=== PATIENT | female | born 1980 | race African-American/Black ===

== ENCOUNTER 2019-03-04 23:10 | Emergency (ER) | payer OTHER ==
[2019-03-04 23:17] VITALS: BP 158/96; PULSE 90; TEMP 98.3; BMI 32.9
--- NOTE | 2019-03-04 23:27 | PDOC ---
History of Present Illness - General Chief Complaint: Pain, Acute Stated Complaint: ABD PAIN Time Seen by Provider: 03/04/19 23:27 History Source: Patient Exam Limitations: No Limitations - History of Present Illness Initial Comments: 03/04/19 23:31 This is a 38-year-old female who comes in complaining of abdominal pain in the periumbilical area. Patient states she has had intermittent abdominal pain for approximately 1 year since she had her child a year ago. Patient said the pain comes and goes and she is never followed up with anybody or seen her primary care doctor about it. She saw a bulging in the area of her umbilicus and had severe pain. By the time she got here the bulging had resolved and the pain was nearly resolved as well. Patient denied any fevers, chills, nausea, vomiting or diarrhea. Allergies: as per nursing notes Past Medical History: none Social history: Lives with family. No smoking. No alcohol. No illicit drugs. Surgical history: None General: No fevers or chills, no weakness, no weight loss HEENT: No change in vision. No sore throat,. No ear pain CardioVascular: no chest discomfort. No shortness of breath Respiratory:No cough, or wheezing. Gastrointestinal: no nausea, vomiting, diarrhea or constipation, No rectal bleeding,, abdominal pain as per HPI Genitourinary: No dysuria, hematuria, or frequency Musculoskeletal: No joint or muscle pain or swelling Neurologic: No headache, vertigo, dizziness or loss of consciousness Psychiatric: nor depression Skin: No rashes or easy bruising Endocrine: no increased thirst or abnormal weight change Allergic: no skin or latex allergy All other systems reviewed and normal Exam: General: Well-nourished well-developed individual, no acute distress HEENT: Throat: Normal, tonsils normal, no erythema or exudate Neck: Supple, no meningeal signs, no lymphadenopathy Eyes::Pupils equal reactive and round, extraocular motion intact Chest: Nontender to palpation Cardiac: S1-S2 normal, regular rate and rhythm, no murmurs rubs or gallops Respiratory: Lungs clear to auscultation bilateral Abdomen: Soft, nondistended, normal bowel sounds, there is mild tenderness on palpation diffusely, there is some mild to moderate tenderness over the umbilical area however there is no palpable hernia. Extremities: Warm, dry, no cyanosis, clubbing, or edema Skin: No rashes Neuro: Alert and oriented x3, CN II - XII intact, nonfocal exam with normal strength, normal sensation, normal reflexes, normal gait, Psych: Normal mood and affect 03/04/19 23:38 03/05/19 01:34 This is a 38-year-old female who comes in complaining of abdominal pain. Patient abdominal pain has resolved here in the ED. Patient had a work-up including a CAT scan that did show a small periumbilical hernia but no fat or bowel in it. In addition patient's blood work is all unremarkable. Patient also had an EKG that did show some nonspecific ST-T wave changes but otherwise was normal. Patient discharged and told to follow-up with her primary care doctor regarding the umbilical hernia 03/05/19 01:35 Past History - Past Medical History Allergies/Adverse Reactions: Allergies Allergy/AdvReac Type Severity Reaction Status Date / Time No Known Allergies Allergy Unverified 03/04/19 23:11 Home Medications: Ambulatory Orders Labetalol HCl 300 mg PO TID 03/04/19 Cardiac Disorders: Yes ('FLUID AROUND HEART') COPD: No Diabetes: Yes HTN: Yes - Surgical History Cardiac Surgery: No (FLUID AROUND HEART DRAINED) Gastric Stapling: No (GASTRIC SLEEVE) - Psycho Social/Smoking Cessation Hx Smoking History: Never smoked *Physical Exam - Vital Signs Last Vital Signs Temp Pulse Resp BP Pulse Ox 98.3 F 90 18 158/96 100 03/04/19 23:12 03/04/19 23:12 03/04/19 23:12 03/04/19 23:12 03/04/19 23:12 ED Treatment Course - LABORATORY CBC & Chemistry Diagram: 03/04/19 23:40 03/04/19 23:40 Discharge - Discharge Information Problems reviewed: Yes Clinical Impression/Diagnosis: Abdominal pain Qualifiers: Abdominal location: periumbilical Qualified Code(s): R10.33 - Periumbilical pain Condition: Stable Disposition: HOME - Admission No - Follow up/Referral - Patient Discharge Instructions Additional Instructions: Follow-up with your primary care doctor. Return to the emergency department immediately with ANY new, persistent or worsening symptoms. Continue any medications as previously prescribed by your physician. You should follow up with your primary doctor as soon as possible regarding today's emergency department visit. . Please make sure your doctor reviews the results of your emergency evaluation. Thank you for coming to the Emergency Department today for your care. It was a pleasure to see you today. Please note that your evaluation is INCOMPLETE until you follow-up with your doctor. - Post Discharge Activity
[2019-03-04] MEDS ORDERED: KETOROLAC TROMETHAMINE 30 MG/1 ML VIAL ONE (23:37)
[2019-03-04] MEDS ORDERED: KETOROLAC TROMETHAMINE 30 MG/1 ML VIAL IVPUSH ONE (23:37)
[2019-03-05 00:43] LABS: BASO % 0.6 % (0-2.0); EOS % 1.2 % (0-4.5); HEMATOCRIT 32.9 % (32.4-45.2); HEMOGLOBIN 10.2 GM/dL (10.7-15.3); LYMPH % 28.7 % (8-40); MCH 20.2 pg (25.7-33.7); MEAN CELL VOLUME 65.2 fl (80-96); MEAN PLT VOLUME 10.8 fl (7.5-11.1); MONO % 6.9 % (3.8-10.2); NEUT % 62.6 % (42.8-82.8); PLATELET COUNT 291 K/MM3 (134-434); RBC 5.05 M/mm3 (3.60-5.2); RDW 18.5 % (11.6-15.6); WHITE BLOOD COUNT 7.6 K/mm3 (4.0-10.0)
[2019-03-05 00:47] LABS: PH,URINE 8.5 (5.0-8.0); URINE APPEARANCE Clear; URINE BILIRUBIN Negative (NEGATIVE); URINE COLOR Yellow; URINE GLUCOSE (UA) Negative (NEGATIVE); URINE KETONE Trace (NEGATIVE); URINE LEUK ESTERASE Trace (NEGATIVE); URINE NITRITE Negative (NEGATIVE); URINE PROTEIN 1+ (NEGATIVE); URINE UROBILINOGEN 0.2 mg/dL (0.2-1.0)
[2019-03-05] MEDS ORDERED: SODIUM CHLORIDE 1,000 ML IV SCH (01:00)
[2019-03-05 01:20] LABS: ALBUMIN 3.7 g/dl (3.4-5.0); BILIRUBIN,TOTAL 0.2 mg/dL (0.2-1); BLOOD UREA NITROGEN 12.4 mg/dL (7-18); CALCIUM 9.5 mg/dL (8.5-10.1); CREATININE 0.8 mg/dL (0.55-1.3)
[2019-03-05 04:34] LABS: ANISOCYTOSIS 2+; MACROCYTOSIS 0; SICKELED CELLS 0
--- NOTE | 2019-03-05 12:17 | EKG ---
Test Reason : Blood Pressure : / mmHG Vent. Rate : 087 BPM Atrial Rate : 087 BPM P-R Int : 198 ms QRS Dur : 080 ms QT Int : 394 ms P-R-T Axes : 055 077 069 degrees QTc Int : 474 ms NORMAL SINUS RHYTHM NONSPECIFIC ST AND T WAVE ABNORMALITY ABNORMAL ECG NO PREVIOUS ECGS AVAILABLE Confirmed by AMNA WATKINS MD ([id number]) on 03/05/2019 12:17:03 PM Referred By: MD ISBELL Confirmed By:AMNA WATKINS MD
== END 2019-03-05 01:40 | disposition home or self-care (01) ==
LOC: FER 23:10
PROC: 3E0333Z Introduction of Anti-inflammatory into Peripheral Vein, Percutaneous Approach (ICD-10-PCS; principal; 2019-03-04)
DX: R10.33 Periumbilical pain (principal); I10 Essential (primary) hypertension; E11.9 Type 2 diabetes mellitus without complications; I51.9 Heart disease, unspecified
CPT/HCPCS: 36415; 74177-TC; 80053; 81003; 82550; 82553; 84484; 85025; 93005; 99283-25; J7030; Q9967

== ENCOUNTER 2019-09-15 21:05 | Emergency (ER) | payer OTHER ==
[2019-09-15 21:20] VITALS: TEMP 98; BMI 32.9
[2019-09-15] MEDS ORDERED: SODIUM CHLORIDE 1,000 ML IV STA (21:26)
[2019-09-15] MEDS ORDERED: morphine CARPU-JECT 4 MG/1 ML DISP.SYRIN IVPUSH ONE (21:26)
[2019-09-15] MEDS ORDERED: morphine SULFATE 4 MG/ML VIAL ONE (21:49)
[2019-09-15 22:19] LABS: BASO % 0.6 % (0-2.0); EOS % 0.9 % (0-4.5); HEMOGLOBIN 9.8 GM/dL (10.7-15.3); LYMPH % 18.9 % (8-40); MCHC 30.7 g/dl (32.0-36.0); MEAN CELL VOLUME 64.2 fl (80-96); MEAN PLT VOLUME 11.3 fl (7.5-11.1); NEUT % 71.6 % (42.8-82.8); PLATELET COUNT 271 K/MM3 (134-434); RBC 4.99 M/mm3 (3.60-5.2); WHITE BLOOD COUNT 7.1 K/mm3 (4.0-10.0)
--- NOTE | 2019-09-15 22:22 | PDOC ---
History of Present Illness - General Chief Complaint: Pain Stated Complaint: HERNIA Time Seen by Provider: 09/15/19 21:25 - History of Present Illness Initial Comments: 09/15/19 22:16 39 yo female with pmh umbilical hernia, pericardial effusion, htn, NIDDM, Gastric bypass presents to ED for pain where hernia is that started 3 days ago. Pt explains for the last three days pain has been getting worse and then today pt had 2 episodes of nbnb emesis and nonbloody not black diarrhea. Pt explains pain is around her umbilicus where hernia and has 10/10 in pain. Pt was diagnosed with umbilical hernia in 2014 and had worsening symptoms five months ago where she was supposed to follow up with surgery, but she did not. Pt today denies any dysuria, urinary frequency, fevers, chills, or shortness of breath. Pt does have chest pain but that is chronic. pmh: pericardial effusion, HTN, DM Meds: metformin, labetalol PSH Gastric sleeve, pericardiocentesis Allergies: NKDA Social: denies smoking, drugs and alchol PCP: Dr. Govea Surgeon: Dr. Dotson ([facility]) Past History - Medical History Allergies/Adverse Reactions: Allergies Allergy/AdvReac Type Severity Reaction Status Date / Time No Known Allergies Allergy Unverified 09/15/19 21:15 Home Medications: Ambulatory Orders Labetalol HCl 300 mg PO TID 03/04/19 Labetalol HCl 300 mg PO TID #20 tablet 09/16/19 Cardiac Disorders: Yes ('FLUID AROUND HEART') COPD: No Diabetes: Yes GI Disorders: Yes (hernia) HTN: Yes - Surgical History Cardiac Surgery: No (FLUID AROUND HEART DRAINED) Gastric Stapling: No (GASTRIC SLEEVE) - Reproductive History Is Patient Now?: No - Psycho-Social/Smoking History Smoking History: Never smoked - Substance Abuse Hx (Audit-C & DAST Scrn) How often the patient has a drink containing alcohol: Never Score: In Men: 4 or > Positive; In Women: 3 or > Positive: 0 Screen Result (Pos requires Nsg. Audit-10AR): Negative Review of Systems - Review of Systems Comments:: 09/15/19 23:54 GENERAL/CONSTITUTIONAL: No fever or chills. No weakness. HEAD, EYES, EARS, NOSE AND THROAT: No change in vision. . No sore throat. CARDIOVASCULAR: No SOB. Chest pain chronic RESPIRATORY: No cough, wheezing, or hemoptysis. GASTROINTESTINAL: Nausea, vomitting, and diarrhea. GENITOURINARY: No dysuria, frequency, or change in urination. MUSCULOSKELETAL: No joint or muscle swelling or pain. No neck or back pain. SKIN: No rash NEUROLOGIC: No headache, vertigo, loss of consciousness, or change in strength/sensation. ENDOCRINE: No increased thirst. No abnormal weight change ALLERGIC/IMMUNOLOGIC: No hives or skin allergy. *Physical Exam - Vital Signs Last Vital Signs Temp Pulse Resp BP Pulse Ox 98 F 77 18 171/111 H 100 09/15/19 21:11 09/15/19 21:11 09/15/19 21:11 09/15/19 21:11 09/15/19 21:11 - Physical Exam 09/15/19 23:56 GENERAL: Awake, alert, and fully oriented, in distress HEAD: No signs of trauma, normocephalic, atraumatic EYES: EOMI, sclera anicteric, conjunctiva clear ENT: Auricles normal inspection, hearing grossly normal, nares patent, NECK: Normal ROM, supple, no lymphadenopathy, JVD, or masses LUNGS: speaks full sentences, clear to auscultation bilaterally HEART: Regular rate and rhythm, normal S1 and S2, no murmurs, rubs or gallops, peripheral pulses normal and equal bilaterally. ABDOMEN: Normoactive bowel sounds in all four quadrants. 2 cm hernia on right periumbillical area. Pt tender to palpation in all four quadrants. No discoloration of hernia EXTREMITIES : Normal inspection,no edema. No clubbing or cyanosis. NEUROLOGICAL: Cranial nerves II through XII grossly intact. Normal speech, normal gait, no focal sensorimotor deficits SKIN: Warm, Dry, normal turgor, no rashes or lesions noted 09/16/19 02:56 ED Treatment Course - LABORATORY CBC & Chemistry Diagram: 09/15/19 21:50 09/15/19 21:50 - Medications Given in the ED: ED Medications Discontinued Medications Generic Name Dose Route Start Last Admin Trade Name Freq PRN Reason Stop Dose Admin Morphine Sulfate 4 mg 09/15/19 21:26 09/15/19 21:53 Morphine Injection - IVPUSH 09/15/19 21:27 4 mg ONCE ONE Administration Medical Decision Making - Medical Decision Making 09/15/19 22:22 39 yo female with pmh of umbilical hernia, htn,dm, pericardial effusion, gastric sleeve presents today for umbilical hernia pain, vomitting, and diarrhea. Pt will rule out incarcerated hernia or obstruction. Will get CT scan of abdomen, cbc, cmp, lactic, coags, type and screen. Will review labs and decide on dispo 09/16/19 03:44 Pt feels better, able to tolerate PO, hernia was mildly reduced, CT scan showed no obstruction. Will dc home with pain meds and surgery follow up. Discharge - Discharge Information Problems reviewed: Yes Clinical Impression/Diagnosis: Umbilical hernia without obstruction or gangrene Condition: Stable Disposition: HOME - Additional Discharge Information Prescriptions: Labetalol HCl 300 mg PO TID #20 tablet - Follow up/Referral Referrals: Domenic Lowry MD [Staff Physician] - - Patient Discharge Instructions Patient Printed Discharge Instructions: Abdominal Hernia Additional Instructions: You came to ED for abdominal pain. This is most likely due to your umbilical hernia. At the ED we got labs and imaging. These showed no acute abnormalities. We gave you pain medications, which controlled your pain. For your umbilical hernia please follow up with surgery within one week. For recurring pain please take tylenol or ibuprofen. - Tylenol 325mg-1000mg 4 times a day no more than [id number] in one day - ibuprofen 400mg every 4-6hrs Max 2400 in one day Your workup is not complete without following up with surgery either your own or the one we referred you to. If you have any of the following please return: - unable to eat anything by mouth - worsening abdominal pain - unable to pass bowel movements If you have any emergency please call for medical help right away. - Post Discharge Activity
[2019-09-15 22:25] LABS: MCH 19.7 pg (25.7-33.7)
[2019-09-15 22:26] LABS: INR 1.02 (0.83-1.09)
[2019-09-15 22:29] LABS: ACTIVATED PTT 30.3 SECONDS (25.2-36.5)
[2019-09-15 22:47] LABS: ALBUMIN 3.8 g/dl (3.4-5.0); BILIRUBIN,TOTAL 0.2 mg/dL (0.2-1); BLOOD UREA NITROGEN 10.2 mg/dL (7-18); CALCIUM 9.1 mg/dL (8.5-10.1); CREATININE 0.8 mg/dL (0.55-1.3)
--- NOTE | 2019-09-15 22:52 | PDOC ---
Documentation entered by Sebastian Love SCRIBE, acting as scribe for Amy Coto MD. Amy Coto MD: This documentation has been prepared by the Kate rojo Xhesika, SCRIBE, under my direction and personally reviewed by me in its entirety. I confirm that the documentation accurately reflects all work, treatment, procedures, and medical decision making performed by me. Attending Attestation - Resident Resident Name: MabelJesus - ED Attending Attestation I have performed the following: I have examined & evaluated the patient, The case was reviewed & discussed with the resident, I agree w/resident's findings & plan - HPI HPI: 09/15/19 21:27 The patient is a 39 year old female with a significant PMH of umbilical hernia, pericardial effusion, HTN, NIDDM, Gastric bypass who presents to the emergency department for 3 days of 10/10 abdominal pain where her hernia is located. Pt states she endorsed 2 episodes of nbnb emesis and diarrhea. Pt states she had similar symptoms 5 months ago, was told to f/u with surgery but she never did. The patient denies chest pain, shortness of breath, headache and dizziness. Denies fever, chills, cough. Denies dysuria, frequency, urgency and hematuria. Allergies: NKDA PCP:Dr. Govea Surgeon: Dr. Dotson ([facility]) - Physicial Exam PE: 09/15/19 22:37 GENERAL: Awake, alert, and fully oriented, in no acute distress EYES: PERRLA, EOMI, sclera anicteric, conjunctiva clear ENT: Auricles normal inspection, hearing grossly normal, nares patent, oropharynx clear without exudates. Moist mucosa NECK: Normal ROM, supple, no lymphadenopathy, JVD, or masses LUNGS: Breath sounds equal, clear to auscultation bilaterally. No wheezes, and no crackles HEART: Regular rate and rhythm, normal S1 and S2, no murmurs, rubs or gallops ABDOMEN:+obese, +perumbilical tenderness with 1 inch circumference mass at 11o'clock of umbilicus. Soft, normoactive bowel sounds. No guarding, no rebound. No masses EXTREMITIES: Normal range of motion, no edema. No clubbing or cyanosis. No cords, erythema, or tenderness NEUROLOGICAL: Cranial nerves II through XII grossly intact. SKIN: Warm, Dry, normal turgor, no rashes lesions noted. - Medical Decision Making 09/15/19 22:58 BP on arrival is elevated. Repeat BP will be done. 09/15/19 22:58 Pt has a microcytic anemia and she has otherwise normal chemistries. 09/15/19 23:04 Pt complaining of nausea and she will be given 10 reglanIV 09/15/19 23:23 repeat BP elevated; pt didn't take her med today. She will be given labetalol 300mg 09/16/19 02:01 CHEM normal UA normal 09/16/19 03:22 Patient Name: ELAINE GRIFFITH THIS IS A PRELIMINARY REPORT FROM [facility] Exam: CT of the abdomen without contrast and CT of the pelvis without contrast. Images: 409 Date of service 2019-09-16 02:28:43 Comparison: None Indication: Umbilical pain IMPRESSION: 1. There is no evidence of bowel obstruction, acute colitis or acute append icitis appreciated.There is a small fat-containing paraumbilical hernia. There appears to be a tiny amount of fluid also in the herniation. 2.There are postoperative changes, consistent with prior gastric surgery. 3. There is a questionable very trace pericardial effusion. 4. There is mild splenomegaly. 09/16/19 03:23 Pt has a fat hernia; she is stable for d/c home Discharge - Discharge Information Problems reviewed: Yes Clinical Impression/Diagnosis: Umbilical hernia without obstruction or gangrene Condition: Stable Disposition: HOME - Admission No - Additional Discharge Information Prescriptions: Labetalol HCl 300 mg PO TID #20 tablet - Follow up/Referral Referrals: Domenic Lowry MD [Staff Physician] - - Patient Discharge Instructions Patient Printed Discharge Instructions: Abdominal Hernia Additional Instructions: You came to ED for abdominal pain. This is most likely due to your umbilical hernia. At the ED we got labs and imaging. These showed no acute abnormalities. We gave you pain medications, which controlled your pain. For your umbilical hernia p lease follow up with surgery within one week. For recurring pain please take tylenol or ibuprofen. - Tylenol 325mg-1000mg 4 times a day no more than [id number] in one day - ibuprofen 400mg every 4-6hrs Max 2400 in one day Your workup is not complete without following up with surgery either your own or the one we referred you to. If you have any of the following please return: - unable to eat anything by mouth - worsening abdominal pain - unable to pass bowel movements If you have any emergency please call for medical help right away. - Post Discharge Activity
[2019-09-15] MEDS ORDERED: METOCLOPRAMIDE HCL INJECTION 10 MG/2 ML VIAL IVPUSH ONE (23:04)
[2019-09-15] MEDS ORDERED: METOCLOPRAMIDE HCL INJECTION 10 MG/2 ML VIAL ONE (23:05)
[2019-09-15] MEDS ORDERED: ACETAMINOPHEN INJECTION 100 ML IVPB ONE (23:15)
[2019-09-15] MEDS ORDERED: ACETAMINOPHEN 1000 MG/100 ML VIAL (NON FORMULARY) IVPB ONE (23:15)
[2019-09-15 23:22] VITALS: BP 167/103; PULSE 80
[2019-09-15] MEDS ORDERED: LABETALOL HCL 100 MG TABLET (FP) PO ONE (23:22)
[2019-09-15 23:35] LABS: ANISOCYTOSIS 3+; MACROCYTOSIS 1+; PLATELET ESTIMATE NORMAL
[2019-09-15] MEDS ORDERED: LABETALOL HCL 100 MG TABLET (FP) ONE (23:38)
[2019-09-16 01:39] LABS: URINE APPEARANCE CLEAR; URINE BILIRUBIN NEGATIVE (NEGATIVE); URINE COLOR YELLOW; URINE GLUCOSE (UA) NEGATIVE (NEGATIVE); URINE KETONE NEGATIVE (NEGATIVE); URINE LEUK ESTERASE NEGATIVE (NEGATIVE); URINE NITRITE NEGATIVE (NEGATIVE); URINE PROTEIN NEGATIVE (NEGATIVE)
--- NOTE | 2019-09-16 10:51 | EKG ---
Test Reason : Blood Pressure : / mmHG Vent. Rate : 074 BPM Atrial Rate : 074 BPM P-R Int : 190 ms QRS Dur : 084 ms QT Int : 398 ms P-R-T Axes : 066 067 093 degrees QTc Int : 441 ms NORMAL SINUS RHYTHM NORMAL ECG WHEN COMPARED WITH ECG OF 04-MAR-2019 23:54, NO SIGNIFICANT CHANGE WAS FOUND Confirmed by Laisha Romero ([id number]) on 09/16/2019 10:50:47 AM Referred By: Confirmed By:Laisha Romero
== END 2019-09-16 03:44 | disposition home or self-care (01) ==
LOC: JER 21:05
PROC: 3E033NZ Introduction of Analgesics, Hypnotics, Sedatives into Peripheral Vein, Percutaneous Approach (ICD-10-PCS; principal; 2019-09-15)
PROC: 3E033GC Introduction of Other Therapeutic Substance into Peripheral Vein, Percutaneous Approach (ICD-10-PCS; 2019-09-15)
PROC: 3E0337Z Introduction of Electrolytic and Water Balance Substance into Peripheral Vein, Percutaneous Approach (ICD-10-PCS; 2019-09-15)
DX: K42.9 Umbilical hernia without obstruction or gangrene (principal)
CPT/HCPCS: 36415; 74176-TC; 80053; 81003; 83605; 83735; 84703; 85025; 85610; 85730; 86850; 86900; 86901; 87086; 93005; 93010; 99285-25; J0131

== ENCOUNTER 2020-03-01 23:40 | Observation (INO) | payer OTHER ==
[2020-03-01 23:47] VITALS: BMI 32.9
[2020-03-02] MEDS ORDERED: FAMOTIDINE 20 MG/50 ML IVPB 20 MG/50 ML MG IVPB ONE ×2 (00:36→01:24)
[2020-03-02] MEDS ORDERED: diphenhydrAMINE HCL 25 MG CAPSULE (FP) PO ONE ×2 (00:36→01:24)
[2020-03-02] MEDS ORDERED: metoPROLOL SUCCINATE 25 MG TAB.SR.24H (FP) ONE (01:03)
[2020-03-02] MEDS ORDERED: METOPROLOL TARTRATE 5 MG/5 ML VIAL IVPUSH ONE (01:04)
[2020-03-02] MEDS ORDERED: METOPROLOL TARTRATE 5 MG/5 ML VIAL ONE (01:04)
[2020-03-02] MEDS ORDERED: metoPROLOL SUCCINATE 25 MG TAB.SR.24H (FP) PO ONE ×2 (01:04→02:47)
[2020-03-02 02:06] LABS: CHLORIDE 109 mmol/L (98-107); POTASSIUM 3.7 mmol/L (3.5-5.1); SODIUM 142 mmol/L (136-145)
[2020-03-02 02:07] LABS: BASO % 0.2 % (0-2.0); EOS % 0.6 % (0-4.5); HEMATOCRIT 30.2 % (32.4-45.2); HEMOGLOBIN 9.3 GM/dL (10.7-15.3); LYMPH % 43.4 % (8-40); MCHC 30.8 g/dl (32.0-36.0); MEAN CELL VOLUME 62.5 fl (80-96); MEAN PLT VOLUME 10.1 fl (7.5-11.1); MONO % 4.9 % (3.8-10.2); NEUT % 50.9 % (42.8-82.8); PLATELET COUNT 266 K/MM3 (134-434); RBC 4.84 M/mm3 (3.60-5.2); RDW 19.4 % (11.6-15.6)
[2020-03-02 02:08] LABS: CALCIUM 8.7 mg/dL (8.5-10.1)
[2020-03-02 02:09] LABS: ALBUMIN 3.5 g/dl (3.4-5.0); ANION GAP 7 MMOL/L (8-16); CO2 26 mmol/L (21-32); GLUCOSE,RANDOM 95 mg/dL (74-106)
[2020-03-02 02:12] LABS: CREATININE 0.7 mg/dL (0.55-1.3); SGOT/AST 18 U/L (15-37); SGPT/ALT 16 U/L (13-61)
[2020-03-02 02:13] LABS: MCH 19.2 pg (25.7-33.7)
[2020-03-02 02:14] LABS: BILIRUBIN,TOTAL 0.2 mg/dL (0.2-1); TOT PROT 7.4 g/dl (6.4-8.2)
[2020-03-02 02:15] LABS: ALK PHOS 79 U/L (45-117); INR 1.06 (0.83-1.09)
[2020-03-02 02:18] LABS: ACTIVATED PTT 27.8 SECONDS (25.2-36.5)
[2020-03-02] MEDS ORDERED: METOPROLOL TARTRATE 25 MG TABLET (FP) ONE (02:51)
[2020-03-02] MEDS ORDERED: METOPROLOL TARTRATE 25 MG TABLET (FP) PO ONE (02:51)
[2020-03-02 02:57] LABS: ANISOCYTOSIS 1+; OVALOCYTE 1+
[2020-03-02] MEDS ORDERED: amLODIPine BESYLATE 5 MG TABLET (FP) PO ONE (03:48)
[2020-03-02] MEDS ORDERED: amLODIPine BESYLATE 5 MG TABLET (FP) ONE ×2 (04:07→10:09)
[2020-03-02] MEDS: ENOXAPARIN NA (PORCINE) 40 MG/0.4 ML DISP.SYRIN SQ SCH (10:00)
[2020-03-02] MEDS: amLODIPine BESYLATE 5 MG TABLET (FP) PO SCH (10:00)
[2020-03-02] MEDS ORDERED: ENOXAPARIN NA (PORCINE) 40 MG/0.4 ML DISP.SYRIN SQ ONE (10:10)
[2020-03-02] MEDS ORDERED: hydrOXYzine HCL 10 MG/5 ML LIQUID BULK BOTTLE PO PRN (10:27)
[2020-03-02 11:45] LABS: CHLORIDE 109 mmol/L (98-107); POTASSIUM 3.7 mmol/L (3.5-5.1); SODIUM 142 mmol/L (136-145)
[2020-03-02 11:47] LABS: CALCIUM 8.2 mg/dL (8.5-10.1); GLUCOSE,RANDOM 118 mg/dL (74-106)
[2020-03-02 11:48] LABS: ANION GAP 2 MMOL/L (8-16); BLOOD UREA NITROGEN 10.5 mg/dL (7-18); CO2 31 mmol/L (21-32); MAGNESIUM 1.9 mg/dL (1.8-2.4)
[2020-03-02 11:50] LABS: CREATININE 0.8 mg/dL (0.55-1.3); PHOSPHOROUS 2.6 mg/dL (2.5-4.9)
[2020-03-02 11:51] LABS: CHOLESTEROL 159 mg/dL (50-200); TOTAL IRON BINDING CAPACITY 382 ug/dL (250-450); TRIGLYCERIDES 115 mg/dL (0-150)
[2020-03-02 11:52] LABS: LDL CHOLESTEROL (ONLY SJRH) 99 mg/dL (5-100)
[2020-03-02 11:53] LABS: HDL CHOLESTEROL 42 mg/dL (40-60)
[2020-03-02 19:50] LABS: BASO % 0.1 % (0-2.0); HEMATOCRIT 28.5 % (32.4-45.2); HEMOGLOBIN 8.9 GM/dL (10.7-15.3); LYMPH % 35.2 % (8-40); MCHC 31.4 g/dl (32.0-36.0); MEAN CELL VOLUME 62.1 fl (80-96); MEAN PLT VOLUME 9.9 fl (7.5-11.1); MONO % 4.2 % (3.8-10.2); NEUT % 59.5 % (42.8-82.8); PLATELET COUNT 254 K/MM3 (134-434); RBC 4.59 M/mm3 (3.60-5.2); RDW 19.3 % (11.6-15.6); WHITE BLOOD COUNT 5.4 K/mm3 (4.0-10.0)
[2020-03-02 19:51] LABS: MCH 19.5 pg (25.7-33.7)
[2020-03-02 20:31] LABS: ERYTHROCYTE SEDIMENTATION RATE 9 mm/hr (0-20)
[2020-03-02] MEDS ORDERED: PT OWN MED DRAWER 7, Y5N ONE (22:09)
[2020-03-02] MEDS ORDERED: ACETAMINOPHEN 325 MG TABLET (FP) ONE (22:22)
[2020-03-02] MEDS: ACETAMINOPHEN 325 MG TABLET (FP) PO PRN (22:25)
[2020-03-03] MEDS ORDERED: MELATONIN 5 MG TABLETS PO PRN (01:09)
[2020-03-03 08:17] LABS: POTASSIUM 3.5 mmol/L (3.5-5.1)
[2020-03-03 08:27] LABS: BLOOD UREA NITROGEN 9.8 mg/dL (7-18); CALCIUM 8.3 mg/dL (8.5-10.1)
[2020-03-03 08:32] LABS: IRON SERUM 26 ug/dL (50-175); TOT PROT 6.3 g/dl (6.4-8.2)
[2020-03-03 08:33] LABS: CREATININE 0.7 mg/dL (0.55-1.3); TOTAL IRON BINDING CAPACITY 333 ug/dL (250-450)
[2020-03-03 08:34] LABS: BILIRUBIN,TOTAL 0.4 mg/dL (0.2-1)
[2020-03-03 09:15] LABS: BASO % 0.2 % (0-2.0); EOS % 1.6 % (0-4.5); HEMATOCRIT 27.5 % (32.4-45.2); HEMOGLOBIN 8.6 GM/dL (10.7-15.3); LYMPH % 47.6 % (8-40); MCHC 31.4 g/dl (32.0-36.0); MEAN CELL VOLUME 61.8 fl (80-96); MEAN PLT VOLUME 10.5 fl (7.5-11.1); MONO % 5.7 % (3.8-10.2); NEUT % 44.9 % (42.8-82.8); PLATELET COUNT 257 K/MM3 (134-434); RBC 4.45 M/mm3 (3.60-5.2); RDW 18.8 % (11.6-15.6); WHITE BLOOD COUNT 4.2 K/mm3 (4.0-10.0)
[2020-03-03] MEDS: amLODIPine BESYLATE 5 MG TABLET (FP) PO SCH (09:29)
[2020-03-03] MEDS: ENOXAPARIN NA (PORCINE) 40 MG/0.4 ML DISP.SYRIN SQ SCH (09:29)
[2020-03-03 09:49] LABS: MCH 19.4 pg (25.7-33.7)
[2020-03-03 09:55] LABS: PLATELET ESTIMATE NORMAL
[2020-03-03] MEDS ORDERED: amLODIPine BESYLATE 10 MG TABLET (FP) PO SCH (11:04)
[2020-03-03] MEDS ORDERED: IRON SUCROSE INJECTION 200 MG in SODIUM CHLORIDE 90 ML IVPB ONE (11:05)
[2020-03-03] MEDS ORDERED: PT OWN MED DRAWER 7, Y5N ONE (12:37)
[2020-03-03] MEDS: ACETAMINOPHEN 325 MG TABLET (FP) PO PRN ×2 (12:38→21:37)
[2020-03-04 05:08] VITALS: TEMP 97.8
[2020-03-04 08:51] LABS: POTASSIUM 3.6 mmol/L (3.5-5.1)
[2020-03-04 08:53] LABS: BASO % 0.2 % (0-2.0); EOS % 2.8 % (0-4.5); HEMATOCRIT 28.8 % (32.4-45.2); HEMOGLOBIN 8.8 GM/dL (10.7-15.3); LYMPH % 39.1 % (8-40); MCHC 30.7 g/dl (32.0-36.0); MEAN PLT VOLUME 9.8 fl (7.5-11.1); MONO % 6.9 % (3.8-10.2); PLATELET COUNT 247 K/MM3 (134-434); RBC 4.65 M/mm3 (3.60-5.2); RDW 19.2 % (11.6-15.6)
[2020-03-04 08:58] LABS: CREATININE 0.6 mg/dL (0.55-1.3)
[2020-03-04 08:59] LABS: BLOOD UREA NITROGEN 7.3 mg/dL (7-18); CALCIUM 8.4 mg/dL (8.5-10.1)
[2020-03-04 09:00] LABS: BILIRUBIN,TOTAL 0.4 mg/dL (0.2-1); TOT PROT 6.4 g/dl (6.4-8.2)
[2020-03-04] MEDS: ENOXAPARIN NA (PORCINE) 40 MG/0.4 ML DISP.SYRIN SQ SCH (10:57)
[2020-03-04] MEDS ORDERED: LABETALOL HCL 100 MG TABLET (FP) PO SCH (14:00)
[2020-03-04 14:33] VITALS: BP 134/90; PULSE 88
[2020-03-04] MEDS ORDERED: FERROUS SO4 325 MG TABLET (FP) PO SCH (22:00)
== END 2020-03-04 18:20 | disposition home or self-care (01) ==
LOC: JER 23:40 → JERBED 03-02 03:50 → UNDOADMOB 03-02 03:50 → INTOOBSV 03-02 03:50 → JERBED 03-02 04:55 → J4W 03-02 23:25
PROVIDERS: ADMIT Hospitalist; ATTEND Student in an Organized Health Care Education/Training Program
PROC: 3E0234Z Introduction of Serum, Toxoid and Vaccine into Muscle, Percutaneous Approach (ICD-10-PCS; principal; 2020-03-02)
PROC: 3E033GC Introduction of Other Therapeutic Substance into Peripheral Vein, Percutaneous Approach (ICD-10-PCS; 2020-03-02)
DX: U07.1 COVID-19 (principal); L29.9 Pruritus, unspecified; I10 Essential (primary) hypertension; E66.9 Obesity, unspecified; D50.9 Iron deficiency anemia, unspecified; Z68.32 Body mass index [BMI] 32.0-32.9, adult; Z98.84 Bariatric surgery status; D25.9 Leiomyoma of uterus, unspecified; I31.3 Pericardial effusion (noninflammatory); Z29.9 Encounter for prophylactic measures, unspecified; R07.9 Chest pain, unspecified
CPT/HCPCS: 36415; 71045-TC-FY; 80048; 80053; 80061; 82550; 82607; 82728; 82746; 83036; 83540; 83550; 83615; 83721; 83735; 84100; 84443; 84466; 84484; 85025; 85610; 85651; 85730; 86038; 86140; 93005; 93010; 93306-TC; 96365; 96367; 96372; 96375; 99285-25; C9803; G0378; J1756; U0003

== ENCOUNTER 2021-09-18 13:45 | Inpatient (IN) | payer OTHER ==
[2021-09-18] MEDS ORDERED: ACETAMINOPHEN 1000 MG/100 ML BAG IVPB ONE (15:03)
[2021-09-18] MEDS ORDERED: ACETAMINOPHEN INJECTION 100 ML IVPB ONE (15:25)
[2021-09-18] MEDS ORDERED: LABETALOL HCL 5 MG/1 ML (100MG/20 ML VIAL) IVPUSH ONE ×2 (15:26→20:49)
[2021-09-18] MEDS ORDERED: METOCLOPRAMIDE HCL INJECTION 10 MG/2 ML VIAL IVPUSH ONE (15:27)
[2021-09-18 15:30] LABS: BASO % 0.4 % (0-2.0); EOS % 1.7 % (0-4.5); HEMATOCRIT 28.2 % (32.4-45.2); HEMOGLOBIN 9.1 GM/dL (10.7-15.3); LYMPH % 23.6 % (8-40); MCHC 32.3 g/dl (32.0-36.0); MEAN PLT VOLUME 8.8 fl (7.5-11.1); MONO % 7.3 % (3.8-10.2); RBC 4.63 M/mm3 (3.60-5.2); WHITE BLOOD COUNT 5.7 K/mm3 (4.0-10.0)
[2021-09-18 15:32] LABS: MCH 19.7 pg (25.7-33.7); PLATELET COUNT 270 10^3/uL (134-434)
[2021-09-18 15:36] LABS: INR 1.12 (0.83-1.09); PROTHROMBIN TIME (PATIENT) 12.9 SEC (9.7-13.0)
[2021-09-18 15:39] LABS: ACTIVATED PTT 30.2 SECONDS (25.2-36.5)
[2021-09-18 15:42] LABS: ALBUMIN 3.2 g/dl (3.4-5.0); BLOOD UREA NITROGEN 11.2 mg/dL (7-18); CALCIUM 8.4 mg/dL (8.5-10.1)
[2021-09-18 15:44] LABS: CREATININE 0.9 mg/dL (0.55-1.3)
[2021-09-18 15:46] LABS: BILIRUBIN,TOTAL 0.2 mg/dL (0.2-1)
[2021-09-18 15:51] LABS: PLATELET ESTIMATE ADEQUATE
[2021-09-18] MEDS ORDERED: LABETALOL HCL 5 MG/1 ML (100MG/20 ML VIAL) ONE (16:17)
[2021-09-18] MEDS ORDERED: METOCLOPRAMIDE HCL INJECTION 10 MG/2 ML VIAL ONE (16:17)
[2021-09-19] MEDS ORDERED: LOSARTAN POTASSIUM 25 MG TABLET PO ONE ×2 (07:20→15:45)
[2021-09-19 07:54] LABS: HEMATOCRIT 30.2 % (32.4-45.2); HEMOGLOBIN 9.4 GM/dL (10.7-15.3); MCHC 31.1 g/dl (32.0-36.0); MEAN CELL VOLUME 61.5 fl (80-96); MEAN PLT VOLUME 9.4 fl (7.5-11.1); PLATELET COUNT 279 10^3/uL (134-434); RBC 4.91 M/mm3 (3.60-5.2); RDW 20.3 % (11.6-15.6); WHITE BLOOD COUNT 5.2 K/mm3 (4.0-10.0)
[2021-09-19 08:09] LABS: MCH 19.1 pg (25.7-33.7)
[2021-09-19 08:16] LABS: CALCIUM 8.4 mg/dL (8.5-10.1)
[2021-09-19 08:18] LABS: ALBUMIN 3.4 g/dl (3.4-5.0); BLOOD UREA NITROGEN 10.8 mg/dL (7-18)
[2021-09-19 08:20] LABS: CREATININE 0.7 mg/dL (0.55-1.3); PHOSPHOROUS 3.7 mg/dL (2.5-4.9)
[2021-09-19 08:22] LABS: BILIRUBIN,TOTAL 0.3 mg/dL (0.2-1); TOT PROT 7.1 g/dl (6.4-8.2)
[2021-09-19] MEDS ORDERED: LOSARTAN POTASSIUM 25 MG TABLET PO SCH (10:00)
[2021-09-19] MEDS ORDERED: METOPROLOL TARTRATE 25 MG TABLET (FP) PO SCH (10:00)
[2021-09-19] MEDS ORDERED: LOSARTAN POTASSIUM 50 MG TABLET PO SCH (10:00)
[2021-09-19] MEDS ORDERED: FERROUS SO4 325 MG TABLET (FP) ONE (10:22)
[2021-09-19] MEDS ORDERED: ENOXAPARIN NA (PORCINE) 40 MG/0.4 ML DISP.SYRIN SQ ONE (10:23)
[2021-09-19] MEDS: FERROUS SO4 325 MG TABLET (FP) PO SCH (10:27)
[2021-09-19] MEDS: ENOXAPARIN NA (PORCINE) 40 MG/0.4 ML DISP.SYRIN SQ SCH (10:27)
[2021-09-19 17:53] VITALS: BMI 34.7
[2021-09-19] MEDS: amLODIPine BESYLATE 10 MG TABLET (FP) PO SCH (23:21)
[2021-09-20 08:03] LABS: BASO % 0.5 % (0-2.0); EOS % 1.9 % (0-4.5); HEMATOCRIT 29.3 % (32.4-45.2); HEMOGLOBIN 9.4 GM/dL (10.7-15.3); LYMPH % 32.2 % (8-40); MCHC 32.3 g/dl (32.0-36.0); MEAN CELL VOLUME 60.9 fl (80-96); MONO % 7.1 % (3.8-10.2); NEUT % 58.3 % (42.8-82.8); PLATELET COUNT 307 10^3/uL (134-434); RBC 4.81 M/mm3 (3.60-5.2); RDW 19.9 % (11.6-15.6); WHITE BLOOD COUNT 5.4 K/mm3 (4.0-10.0)
[2021-09-20 08:05] LABS: MCH 19.6 pg (25.7-33.7)
[2021-09-20 08:14] LABS: BLOOD UREA NITROGEN 10.3 mg/dL (7-18); CALCIUM 8.3 mg/dL (8.5-10.1); CREATININE 0.7 mg/dL (0.55-1.3); MAGNESIUM 1.9 mg/dL (1.8-2.4); PHOSPHOROUS 2.9 mg/dL (2.5-4.9)
[2021-09-20] MEDS: ENOXAPARIN NA (PORCINE) 40 MG/0.4 ML DISP.SYRIN SQ SCH (09:34)
[2021-09-20] MEDS: amLODIPine BESYLATE 10 MG TABLET (FP) PO SCH (09:34)
[2021-09-20] MEDS: FERROUS SO4 325 MG TABLET (FP) PO SCH (09:34)
[2021-09-20] MEDS: LOSARTAN POTASSIUM 50 MG TABLET PO SCH (09:34)
[2021-09-20] MEDS ORDERED: ACETAMINOPHEN 1000 MG/100 ML BAG IVPB PRN (14:48)
[2021-09-20] MEDS ORDERED: metoPROLOL SUCCINATE 25 MG TAB.SR.24H (FP) PO ONE (17:12)
[2021-09-20] MEDS: HYDROCHLOROTHIAZIDE 25 MG TABLET (FP) PO SCH (17:44)
[2021-09-21 07:20] LABS: BASO % 0.4 % (0-2.0); EOS % 2.3 % (0-4.5); HEMATOCRIT 32.4 % (32.4-45.2); HEMOGLOBIN 10.2 GM/dL (10.7-15.3); MCHC 31.4 g/dl (32.0-36.0); MEAN CELL VOLUME 61.6 fl (80-96); MEAN PLT VOLUME 9.6 fl (7.5-11.1); NEUT % 58.3 % (42.8-82.8); PLATELET COUNT 288 10^3/uL (134-434); RBC 5.27 M/mm3 (3.60-5.2); RDW 19.8 % (11.6-15.6); WHITE BLOOD COUNT 5.9 K/mm3 (4.0-10.0)
[2021-09-21 07:32] LABS: MCH 19.3 pg (25.7-33.7)
[2021-09-21 07:33] LABS: ADD RBC MORPHOLOGY YES
[2021-09-21 07:39] LABS: CALCIUM 8.9 mg/dL (8.5-10.1)
[2021-09-21 07:40] LABS: BLOOD UREA NITROGEN 16.4 mg/dL (7-18); MAGNESIUM 1.8 mg/dL (1.8-2.4)
[2021-09-21 07:43] LABS: CREATININE 0.8 mg/dL (0.55-1.3); PHOSPHOROUS 4.2 mg/dL (2.5-4.9)
[2021-09-21 07:46] LABS: CHOLESTEROL 181 mg/dL (50-200); TRIGLYCERIDES 107 mg/dL (0-150)
[2021-09-21 07:47] LABS: LDL CHOLESTEROL (ONLY SJRH) 120 mg/dL (5-100)
[2021-09-21 07:49] LABS: HDL CHOLESTEROL 45 mg/dL (40-60)
[2021-09-21] MEDS: ENOXAPARIN NA (PORCINE) 40 MG/0.4 ML DISP.SYRIN SQ SCH (09:17)
[2021-09-21] MEDS: FERROUS SO4 325 MG TABLET (FP) PO SCH (09:18)
[2021-09-21] MEDS: HYDROCHLOROTHIAZIDE 25 MG TABLET (FP) PO SCH (09:18)
[2021-09-21] MEDS: LOSARTAN POTASSIUM 50 MG TABLET PO SCH (09:18)
[2021-09-21] MEDS ORDERED: metoPROLOL SUCCINATE 25 MG TAB.SR.24H (FP) PO SCH (10:00)
[2021-09-21] MEDS ORDERED: metoPROLOL SUCCINATE 25 MG TAB.SR.24H (FP) PO ONE ×2 (17:47→18:30)
[2021-09-21] MEDS ORDERED: ZOLPIDEM TARTRATE 5 MG TABLET PO PRN (18:33)
[2021-09-21 19:23] VITALS: RESP 18
[2021-09-22 05:53] VITALS: TEMP 98
[2021-09-22 07:23] LABS: BASO % 0.4 % (0-2.0); EOS % 1.5 % (0-4.5); HEMOGLOBIN 10.2 GM/dL (10.7-15.3); LYMPH % 26.2 % (8-40); MCHC 31.8 g/dl (32.0-36.0); MEAN CELL VOLUME 60.9 fl (80-96); MEAN PLT VOLUME 9.7 fl (7.5-11.1); MONO % 7.7 % (3.8-10.2); NEUT % 64.2 % (42.8-82.8); PLATELET COUNT 253 10^3/uL (134-434); RBC 5.25 M/mm3 (3.60-5.2); RDW 19.6 % (11.6-15.6)
[2021-09-22 07:42] LABS: CALCIUM 8.6 mg/dL (8.5-10.1)
[2021-09-22 07:43] LABS: BLOOD UREA NITROGEN 18.4 mg/dL (7-18)
[2021-09-22 07:46] LABS: CREATININE 0.9 mg/dL (0.55-1.3); MAGNESIUM 1.9 mg/dL (1.8-2.4); PHOSPHOROUS 4.3 mg/dL (2.5-4.9)
[2021-09-22 07:47] LABS: MCH 19.4 pg (25.7-33.7)
[2021-09-22 07:53] VITALS: PULSE 71
[2021-09-22] MEDS: FERROUS SO4 325 MG TABLET (FP) PO SCH (09:18)
[2021-09-22] MEDS: ENOXAPARIN NA (PORCINE) 40 MG/0.4 ML DISP.SYRIN SQ SCH (09:18)
[2021-09-22] MEDS: HYDROCHLOROTHIAZIDE 25 MG TABLET (FP) PO SCH (09:18)
[2021-09-22] MEDS: LOSARTAN POTASSIUM 50 MG TABLET PO SCH (09:18)
[2021-09-22 15:39] VITALS: BP 128/79
== END 2021-09-22 17:36 | disposition home or self-care (01) | DRG 199 ==
LOC: JER 13:45 → OBSVTOIN 16:57 → JERBED 16:57 → J4W 09-19 17:02
PROVIDERS: ADMIT Internal Medicine; ATTEND Internal Medicine
DX: I16.1 Hypertensive emergency (principal); D50.9 Iron deficiency anemia, unspecified; D25.9 Leiomyoma of uterus, unspecified; N92.0 Excessive and frequent menstruation with regular cycle; I31.3 Pericardial effusion (noninflammatory); R51.9 Headache, unspecified; R07.89 Other chest pain; I10 Essential (primary) hypertension; H53.8 Other visual disturbances
CPT/HCPCS: 36415; 70450-TC; 71046-TC-FY; 80048; 80053; 80061; 82962; 83735; 84100; 84484; 84703; 85025; 85027; 85610; 85730; 93005; 93010; 93306-TC; 93970-TC; 99285-25; C9803-CS; U0003; U0005